=== PATIENT | male | born 1995 | race Caucasian/White ===

== ENCOUNTER 2017-10-28 16:02 | Emergency (ER) | payer MEDICAID ==
[2017-10-28] MEDS: KETOROLAC 60 MG INJ IM (19:44)
[2017-10-28] MEDS: LORAZEPAM 1 MG TAB PO (19:45)
== END 2017-10-28 21:52 | disposition home or self-care (01) ==
LOC: FTE 16:02
DX: S80.02XA Contusion of left knee, initial encounter (principal); R07.9 Chest pain, unspecified; V49.40XA Driver injured in collision with unspecified motor vehicles in traffic accident, initial encounter
CPT/HCPCS: 29505; 71046; 72040; 72100; 73510; 73562; 96372; 99284-25